=== PATIENT | female | born 1995 | race Caucasian/White ===

== ENCOUNTER 2016-11-16 11:46 | Emergency (ER) | payer OTHER ==
[2016-11-16 12:11] VITALS: BP 137/79
--- NOTE | 2016-11-16 13:06 | UC ---
Throat Pain/Nasal Jagdish HPI - HPI Summary HPI Summary: FOUR DAYS OF SORE THROAT SINUS CONGESTION AND PRESSURE - History of Current Complaint Chief Complaint: UCRespiratory Stated Complaint: SINUS ISSUE SORE THROAT Time Seen by Provider: 11/16/16 12:39 Hx Obtained From: Patient Hx Last Menstrual Period: 09/23/16- STATES SHE IS VERY IRREGULAR Onset/Duration: Gradual Onset, Lasting Days, Still Present Severity: Mild Cough: Nonproductive Associated Signs & Symptoms: Positive: Sinus Discomfort, Nasal Discharge - Epiglottits Risk Factors Epiglottis Risk Factors: Negative - Allergies/Home Medications Allergies/Adverse Reactions: Allergies Allergy/AdvReac Type Severity Reaction Status Date / Time Penicillins Allergy Rash Verified 09/11/14 14:35 PMH/Surg Hx/FS Hx/Imm Hx Previously Healthy: Yes Endocrine History Of: Denies: Diabetes, Thyroid Disease Cardiovascular History Of: Denies: Cardiac Disorders, Hypertension, Pacemaker/ICD Respiratory History Of: Denies: COPD, Asthma GI/ History Of: Denies: Ulcer - Surgical History Surgical History: None - Family History Known Family History: Positive: Hypertension - Social History Occupation: Employed Full-time Lives: With Family Alcohol Use: None Substance Use Type: None Smoking Status (MU): Never Smoked Tobacco - Immunization History Most Recent Influenza Vaccination: 07/10 Review of Systems Constitutional: Negative Skin: Negative Eyes: Negative ENT: Sore Throat, Ear Ache, Nasal Discharge Respiratory: Negative Cardiovascular: Negative Gastrointestinal: Negative Genitourinary: Negative Motor: Negative Neurovascular: Negative Musculoskeletal: Negative Neurological: Negative Psychological: Negative All Other Systems Reviewed And Are Negative: Yes Physical Exam Triage Information Reviewed: Yes Appearance: Well-Appearing, No Pain Distress, Well-Nourished Vital Signs: Initial Vital Signs Temp 98.4 F 11/16/16 12:05 Pulse 89 11/16/16 12:05 Resp 16 11/16/16 12:05 BP 137/79 11/16/16 12:05 Pulse Ox 100 11/16/16 12:05 Vital Signs Reviewed: Yes Eye Exam: Normal ENT: Positive: Hearing grossly normal, TMs normal, TM bulging, TM dull Dental Exam: Normal Neck exam: Normal Respiratory Exam: Normal Respiratory: Positive: Chest non-tender, Lungs clear, Normal breath sounds, No respiratory distress, No accessory muscle use Cardiovascular Exam: Normal Cardiovascular: Positive: RRR, No Murmur, Pulses Normal Abdominal Exam: Normal Abdomen Description: Positive: Nontender, No Organomegaly Musculoskeletal Exam: Normal Neurological Exam: Normal Psychological Exam: Normal Skin Exam: Normal Throat Pain/Nasal Course/Dx - Differential Dx/Diagnosis Differential Diagnosis/HQI/PQRI: Otitis Media, Sinusitis, Tonsillitis, URI Provider Diagnoses: SINUSITIS Discharge - Discharge Plan Condition: Stable Disposition: HOME Prescriptions: Azithromycin TAB* [Zithromax TAB (Z-MUNA) 250 mg #6 tabs] 250 mg PO DAILY #6 tab Patient Education Materials: Sinusitis (ED) Forms: *Work Release Referrals: Maggy Denney MD [Primary Care Provider] -
== END 2016-11-16 13:02 | disposition home or self-care (01) ==
LOC: UCEAST 11:46
DX: J32.9 Chronic sinusitis, unspecified (principal); Z88.0 Allergy status to penicillin
CPT/HCPCS: 36415; 86703; 99212; G0463

== ENCOUNTER 2017-03-10 13:55 | Emergency (ER) | payer OTHER ==
[2017-03-10 14:04] VITALS: BP 154/94
--- NOTE | 2017-04-09 22:25 | UC ---
Sarbjit Burgess Aidan, scribed for Amaya Robin DO on 03/10/17 at 1423 . Psychiatric Complaint HPI - HPI Summary HPI Summary: 21 y/o female presents to the Urgent Care with a complaint of an acute, constant , moderate, possibly infected, linear cut on the left shoulder that was self- induced 2 weeks ago. Pt used a cleaned razor to induce the cut. She is due for a tetanus shot. While at convenient care, she reopened the cut with her nails. She reports that cutting herself reduces her stress and that she has been cutting since she was 12 y/o. Lastly, she requests a MHE. Though she has had SI in the past, she denies any HI and does not claim to be suicidal currently. Besides mentioning getting diarrhea when her body becomes overheated, she denies any other symptoms. - History Of Current Complaint Chief Complaint: EDMentalHealth Stated Complaint: PERSONAL Time Seen by Provider: 03/10/17 14:05 Hx Obtained From: Patient Hx Last Menstrual Period: 02/06/17 ?: No Onset/Duration: Sudden Onset, Lasting Weeks, Still Present Timing: Constant Severity Initially: Moderate Severity Currently: Moderate Character: Depressed Aggravating Factor(s): Nothing - unknown; Pt has depression and has been cutting herself since she was 12 y/o. Alleviating Factor(s): Nothing - Pt mentions counseling, however, she did not state that the counseling has helped. Associated Signs And Symptoms: Negative - Pt gets diarrhea when her body becomes overheated Related History: Positive For: Prior Psychiatric Issues - depression Has Suicidal: Thoughts - Risk Factor(s) Completed Suicide Risk Factors: White Bel[place]an - Allergies/Home Medications Allergies/Adverse Reactions: Allergies Allergy/AdvReac Type Severity Reaction Status Date / Time Penicillins Allergy Rash Verified 03/11/17 13:33 PMH/Surg Hx/FS Hx/Imm Hx - Additional Past Medical History Additional PMH: Hx of mono Psychological History: Depression - Pt has been cutting herself since she was 12 years old - Surgical History Surgical History: None - Family History Known Family History: Positive: Hypertension, Other - depression, skin CA - Social History Occupation: Employed Full-time Lives: Alone Alcohol Use: Rare Substance Use Type: None Smoking Status (MU): Never Smoked Tobacco - Immunization History Most Recent Influenza Vaccination: 07/10 Review of Systems Constitutional: Negative Skin: Other - linear, self-induced lacerations to shoulders bilaterally, active bleeding at a laceration to the left shoulder Eyes: Negative ENT: Negative Respiratory: Negative Cardiovascular: Negative Gastrointestinal: Negative Genitourinary: Negative Motor: Negative Neurovascular: Negative Musculoskeletal: Negative Neurological: Negative Psychological: Negative All Other Systems Reviewed And Are Negative: Yes Physical Exam Triage Information Reviewed: Yes Appearance: Well-Appearing, No Pain Distress, Well-Nourished Vital Signs: Initial Vital Signs Temp 98.9 F 03/10/17 13:57 Pulse 107 03/10/17 13:57 Resp 18 03/10/17 13:57 BP 154/94 03/10/17 13:57 Pulse Ox 100 03/10/17 13:57 Vital Signs Reviewed: Yes Eyes: Positive: Conjunctiva Clear. Negative: Discharge ENT: Positive: Hearing grossly normal. Negative: Muffled/hoarse voice Neck exam: Normal Neck: Positive: Supple Respiratory: Positive: Lungs clear, Normal breath sounds, No respiratory distress, No accessory muscle use Cardiovascular: Positive: RRR, No Murmur Musculoskeletal Exam: Normal Neurological: Positive: Alert, Muscle Tone Normal Psychological Exam: Other - Anxious, at times, tearful but consolable Skin Exam: Other - warm, dry, normal color, 6cm laceration over the anterior aspect of the left shoulder Psych Complaint Course/Dx - Course Course Of Treatment: 21 y/o female presents for a MHE. She has self-induced lacerations to the left shoulder. High blood pressure is noted. She denies any Hx of smoking. She was encouraged to exercise regularly and to follow up with psychiatry. She will be transfered to the ED for MHE. - Differential Dx/Diagnosis Differential Diagnosis/HQI/PQRI: Suicidal Ideation, Other - self mutilation Provider Diagnoses: self mutilation, depression suicidal ideation Discharge - Discharge Plan Condition: Stable Disposition: [facility] Discharge Disposition Comment: The patient will be transfered to the ED for a MHE. Referrals: Maggy Denney MD [Primary Care Provider] - The documentation as recorded by the Sarbjit frank Aidan accurately reflects the service I personally performed and the decisions made by me, Amaya Robin DO.
== END 2017-03-10 16:25 | disposition short-term general hospital (02) ==
LOC: UCEAST 13:55
DX: S41.012A Laceration without foreign body of left shoulder, initial encounter (principal); X78.8XXA Intentional self-harm by other sharp object, initial encounter; Y93.9 Activity, unspecified; Y92.9 Unspecified place or not applicable; F32.9 Major depressive disorder, single episode, unspecified; R45.851 Suicidal ideations; R19.7 Diarrhea, unspecified; R03.0 Elevated blood-pressure reading, without diagnosis of hypertension
CPT/HCPCS: 99213; G0463

== ENCOUNTER 2017-03-10 15:42 | Inpatient (IN) | payer OTHER ==
[2017-03-10 16:33] LABS: Hematocrit 44 % (35-47); Hemoglobin 14.9 g/dl (12.0-16.0); Mean Corpuscular HGB Conc 34 g/dl (31-36); Mean Corpuscular Hemoglobin 30 pg (27-31); Mean Corpuscular Volume 88 fL (80-97); Mean Platelet Volume 7 um3 (7.4-10.4); Red Blood Count 5.02 10^6/ul (4.0-5.4); Red Cell Distribution Width 12 % (10.5-15); White Blood Count 11.6 10^3/ul (3.5-10.8)
[2017-03-10 16:40] LABS: Urine Bilirubin Negative (Negative); Urine Glucose Negative (Negative); Urine Nitrite Negative (Negative)
[2017-03-10 16:44] LABS: Benzodiazepine Urine Screen None Detected (None Detect)
[2017-03-10 16:58] LABS: ALT 15 U/L (7-52); AST 15 U/L (13-39); Albumin 4.8 g/dL (3.2-5.2); Alkaline Phosphatase 82 U/L (34-104); Anion Gap 8 mmol/L (2-11); BUN/Creatinine Ratio 16.4 (8-20); Blood Urea Nitrogen 12 mg/dL (6-24); CO2 Carbon Dioxide 22 mmol/L (22-32); Chloride 105 mmol/L (101-111); EGFR African American 129.4 (>60); EGFR Non-African American 100.6 (>60); Globulin 3.3 g/dL (2-4); Glucose 110 mg/dL (70-100); Sodium 135 mmol/L (133-145); Total Protein 8.1 g/dL (6.4-8.9)
[2017-03-10 17:12] LABS: Acetaminophen < 15 mcg/mL; Alcohol < 10 mg/dL (<10); Salicylate < 2.50 mg/dL (<30)
[2017-03-10 17:15] LABS: TSH (Thyroid Stimulating Horm) 1.31 mcIU/mL (0.34-5.60)
[2017-03-10] MEDS ORDERED: Acetaminophen TAB* 325 MG PO ONE (17:32)
--- NOTE | 2017-03-10 22:12 | ED ---
Coral Burgess Alfonso, scribed for Peterson Mace MD on 03/10/17 at 1548 . Psychiatric Complaint - HPI Summary HPI Summary: This patient is a 21 year old female BIBA with police to [facility] for cutting herself earlier today. She states "I cut myself on my left shoulder with a razor " in the urgent care bathroom, and has cut herself at the same site in the past. The triage note stats she wrote a letter "asking for help" last night. Sx aggravated and alleviated by nothing. - History Of Current Complaint Chief Complaint: EDMentalHealth Hx Obtained From: Patient Hx Last Menstrual Period: 02/06/17 Onset/Duration: Sudden Onset, Lasting Hours - Earlier today, Still Present Timing: Constant Severity Initially: Moderate Severity Currently: Moderate Aggravating Factor(s): Nothing Alleviating Factor(s): Nothing Has Suicidal: Reports: Has Prior Attempt(s) - Cut herself with a razor on her left shoulder today and in the past. - Allergies/Home Medications Allergies/Adverse Reactions: Allergies Allergy/AdvReac Type Severity Reaction Status Date / Time Penicillins Allergy Rash Verified 09/11/14 14:35 Home Medications: Home Medications Sertraline* [Zoloft*] 150 mg PO DAILY 03/10/17 [History Confirmed 03/10/17] busPIRone TAB* [Buspar TAB*] 10 mg PO BID 03/10/17 [History Confirmed 03/10/17] PMH/Surg Hx/FS Hx/Imm Hx Endocrine/Hematology History: Denies: Hx Diabetes, Hx Thyroid Disease Cardiovascular History: Denies: Hx Hypertension, Hx Pacemaker/ICD Respiratory History: Denies: Hx Asthma, Hx Chronic Obstructive Pulmonary Disease (COPD) GI History: Denies: Hx Ulcer Musculoskeletal History: Reports: Other Musculoskeletal History - swimmer, sprain or fx couple yrs ago,[facility] imaging blurry Psychiatric History: Denies: Hx Panic Disorder Infectious Disease History: Reports: Hx Shingles Denies: Hx Clostridium Difficile, Hx Hepatitis, Hx Human Immunodeficiency Virus (HIV), Hx of Known/Suspected MRSA, Hx Tuberculosis, Hx Known/Suspected VRE , Hx Known/Suspected VRSA, History Other Infectious Disease - mono - Family History Known Family History: Positive: Hypertension Negative: Other - Bipolar disorder - Social History Alcohol Use: Rare Substance Use Type: Reports: None Smoking Status (MU): Never Smoked Tobacco Review of Systems Constitutional: Negative Eyes: Negative ENT: Negative Cardiovascular: Negative Respiratory: Negative Gastrointestinal: Negative Genitourinary: Negative Musculoskeletal: Negative Positive: Other - Cut by razor on left shoulder Neurological: Negative Psychological: Normal All Other Systems Reviewed And Are Negative: Yes Physical Exam Triage Information Reviewed: Yes Vital Signs On Initial Exam: Initial Vitals Temp Pulse Resp BP Pulse Ox 100.1 F 80 16 152/78 98 03/10/17 16:23 03/10/17 16:23 03/10/17 16:23 03/10/17 16:23 03/10/17 16:23 Vital Signs Reviewed: Yes Appearance: Positive: Well-Appearing, No Pain Distress Skin: Positive: Warm, Skin Color Reflects Adequate Perfusion, Dry, Other - 8cm laceration on left anterior shoulder. 3mm gap open. Head/Face: Positive: Normal Head/Face Inspection Eyes: Positive: Normal ENT: Positive: Normal ENT inspection Neck: Positive: Supple, Nontender Respiratory/Lung Sounds: Positive: Clear to Auscultation, Breath Sounds Present Cardiovascular: Positive: RRR Abdomen Description: Positive: Nontender, Soft Bowel Sounds: Positive: Present Musculoskeletal: Positive: Normal Neurological: Positive: Normal, Sensory/Motor Intact, Alert, Oriented to Person Place, Time, CN Intact II-III Psychiatric: Positive: Normal Procedures - Laceration/Wound Repair 1 Location: upper extremity - anterior left shoulder Description: Linear Anesthesia: Local, 2.0%, Lido Betadine Prep?: Yes Laceration/Wound Explored: clean Closure: Single Layer Suture Type: Nylon - 5.0 simple interrupted Number of Sutures: 7 Layer Closure?: No Sterile Dressing Applied?: No Diagnostics - Vital Signs Vital Signs Temp Pulse Resp BP Pulse Ox 03/10/17 17:22 99.3 F 106 16 144/98 97 03/10/17 16:23 100.1 F 80 16 152/78 98 - Laboratory Lab Results: Lab Results 03/10/17 03/10/17 03/10/17 Range/Units 16:05 16:05 16:14 WBC 11.6 H (3.5-10.8) 10^3/ul RBC 5.02 (4.0-5.4) 10^6/ul Hgb 14.9 (12.0-16.0) g/dl Hct 44 (35-47) % MCV 88 (80-97) fL MCH 30 (27-31) pg MCHC 34 (31-36) g/dl RDW 12 (10.5-15) % Plt Count 340 (150-450) 10^3/ul MPV 7 L (7.4-10.4) um3 Neut % (Auto) 68.3 (38-83) % Lymph % (Auto) 22.7 L (25-47) % [place] % (Auto) 7.2 (1-9) % Eos % (Auto) 1.0 (0-6) % Baso % (Auto) 0.8 (0-2) % Absolute Neuts (auto) 7.9 H (1.5-7.7) 10^3/ul Absolute Lymphs (auto) 2.6 (1.0-4.8) 10^3/ul Absolute Monos (auto) 0.8 (0-0.8) 10^3/ul Absolute Eos (auto) 0.1 (0-0.6) 10^3/ul Absolute Basos (auto) 0.1 (0-0.2) 10^3/ul Absolute Nucleated RBC 0 10^3/ul Nucleated RBC % 0 Sodium (133-145) mmol/L Potassium (3.5-5.0) mmol/L Chloride (101-111) mmol/L Carbon Dioxide (22-32) mmol/L Anion Gap (2-11) mmol/L BUN (6-24) mg/dL Creatinine (0.51-0.95) mg/dL Est GFR ( Amer) (>60) Est GFR (Non-Af Amer) (>60) BUN/Creatinine Ratio (8-20) Glucose (70-100) mg/dL Calcium (8.6-10.3) mg/dL Total Bilirubin (0.2-1.0) mg/dL AST (13-39) U/L ALT (7-52) U/L Alkaline Phosphatase (34-104) U/L Total Protein (6.4-8.9) g/dL Albumin (3.2-5.2) g/dL Globulin (2-4) g/dL Albumin/Globulin Ratio (1-3) TSH (0.34-5.60) mcIU/mL Beta HCG, Quant mIU/mL Urine Color Yellow Urine Appearance Clear Urine pH 5.0 (5-9) Ur Specific [place] 1.023 (1.010-1.030) Urine Protein Negative (Negative) Urine Ketones Negative (Negative) Urine Blood Negative (Negative) Urine Nitrate Negative (Negative) Urine Bilirubin Negative (Negative) Urine Urobilinogen Negative (Negative) Ur Leukocyte Esterase Negative (Negative) Urine Glucose Negative (Negative) Salicylates (<30) mg/dL Urine Opiates Screen None detected (None Detect) Acetaminophen mcg/mL Ur Barbiturates Screen None detected (None Detect) Ur Phencyclidine Scrn None detected (None Detect) Ur Amphetamines Screen None detected (None Detect) U Benzodiazepines Scrn None detected (None Detect) Urine Cocaine Screen None detected (None Detect) U Cannabinoids Screen None detected (None Detect) Serum Alcohol (<10) mg/dL 03/10/17 Range/Units 16:14 WBC (3.5-10.8) 10^3/ul RBC (4.0-5.4) 10^6/ul Hgb (12.0-16.0) g/dl Hct (35-47) % MCV (80-97) fL MCH (27-31) pg MCHC (31-36) g/dl RDW (10.5-15) % Plt Count (150-450) 10^3/ul MPV (7.4-10.4) um3 Neut % (Auto) (38-83) % Lymph % (Auto) (25-47) % [place] % (Auto) (1-9) % Eos % (Auto) (0-6) % Baso % (Auto) (0-2) % Absolute Neuts (auto) (1.5-7.7) 10^3/ul Absolute Lymphs (auto) (1.0-4.8) 10^3/ul Absolute Monos (auto) (0-0.8) 10^3/ul Absolute Eos (auto) (0-0.6) 10^3/ul Absolute Basos (auto) (0-0.2) 10^3/ul Absolute Nucleated RBC 10^3/ul Nucleated RBC % Sodium 135 (133-145) mmol/L Potassium 4.0 (3.5-5.0) mmol/L Chloride 105 (101-111) mmol/L Carbon Dioxide 22 (22-32) mmol/L Anion Gap 8 (2-11) mmol/L BUN 12 (6-24) mg/dL Creatinine 0.73 (0.51-0.95) mg/dL Est GFR ( Amer) 129.4 (>60) Est GFR (Non-Af Amer) 100.6 (>60) BUN/Creatinine Ratio 16.4 (8-20) Glucose 110 H (70-100) mg/dL Calcium 10.0 (8.6-10.3) mg/dL Total Bilirubin 0.40 (0.2-1.0) mg/dL AST 15 (13-39) U/L ALT 15 (7-52) U/L Alkaline Phosphatase 82 (34-104) U/L Total Protein 8.1 (6.4-8.9) g/dL Albumin 4.8 (3.2-5.2) g/dL Globulin 3.3 (2-4) g/dL Albumin/Globulin Ratio 1.5 (1-3) TSH 1.31 (0.34-5.60) mcIU/mL Beta HCG, Quant 1.46 mIU/mL Urine Color Urine Appearance Urine pH (5-9) Ur Specific [place] (1.010-1.030) Urine Protein (Negative) Urine Ketones (Negative) Urine Blood (Negative) Urine Nitrate (Negative) Urine Bilirubin (Negative) Urine Urobilinogen (Negative) Ur Leukocyte Esterase (Negative) Urine Glucose (Negative) Salicylates < 2.50 (<30) mg/dL Urine Opiates Screen (None Detect) Acetaminophen < 15 mcg/mL Ur Barbiturates Screen (None Detect) Ur Phencyclidine Scrn (None Detect) Ur Amphetamines Screen (None Detect) U Benzodiazepines Scrn (None Detect) Urine Cocaine Screen (None Detect) U Cannabinoids Screen (None Detect) Serum Alcohol < 10 (<10) mg/dL Result Diagrams: 03/10/17 16:14 03/10/17 16:14 Lab Statement: Any lab studies that have been ordered have been reviewed, and results considered in the medical decision making process. Re-Evaluation - Re-Evaluation First Eval Re-Evaluation Time: 19:48 Change: Improved Comment: Discussed admission with patient. Course/Dx - Course Course Of Treatment: Ms. Crispell cut herself over at [facility] today for unknown reasons and was sent over. She is medically clear and undergoing MHE. - Differential Dx/Clinical Impression Provider Diagnosis: Mood disorder Discharge - Discharge Plan Condition: Stable Disposition: ADMITTED TO [facility] Referrals: Maggy Denney MD [Primary Care Provider] - The documentation as recorded by the Coral frank Alfonso accurately reflects the service I personally performed and the decisions made by me, Peterson Mace MD.
[2017-03-10] MEDS ORDERED: Al Hydrox/Mg Hydrox/Simet LIQ* 30 ML UDC PO PRN (22:36)
[2017-03-10] MEDS ORDERED: Loperamide CAP* 2 MG PO PRN (22:40)
[2017-03-11] MEDS ORDERED: Sertraline* 100 MG TAB PO SCH (01:00)
[2017-03-11] MEDS ORDERED: busPIRone TAB* 10 MG ONE (01:03)
[2017-03-11] MEDS: busPIRone TAB* 10 MG PO SCH ×3 (01:06→21:24)
[2017-03-11] MEDS: Acetaminophen TAB* 325 MG PO PRN (02:00)
[2017-03-11] MEDS: Vitamin THERAPEUTIC TAB PO SCH (09:10)
[2017-03-11] MEDS: Sertraline* 100 MG TAB PO SCH (21:24)
[2017-03-11] MEDS: Bacitracin OINTMENT* 1 TUBE TOPICAL SCH (21:25)
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
[2017-03-12] MEDS: Vitamin THERAPEUTIC TAB PO SCH (08:26)
[2017-03-12] MEDS: busPIRone TAB* 10 MG PO SCH ×2 (08:26→20:20)
[2017-03-12] MEDS: Bacitracin OINTMENT* 1 TUBE TOPICAL SCH ×2 (08:27→10:04)
[2017-03-12] MEDS: Sertraline* 100 MG TAB PO SCH (20:20)
[2017-03-13] MEDS: Bacitracin OINTMENT* 1 TUBE TOPICAL SCH ×3 (07:29→23:30)
[2017-03-13] MEDS: Vitamin THERAPEUTIC TAB PO SCH (08:38)
[2017-03-13] MEDS: busPIRone TAB* 10 MG PO SCH ×2 (08:38→21:29)
--- NOTE | 2017-03-13 13:04 | PN ---
[facility]: Group Therapy Note - Service Type Service Type: [id number] Group Psychotherapy - Cognitive Behavioral Group Therapy ( CBT):Patient was attentive and participatory in CBT programming this morning, and remained in good behavioral control. Patient expressed positive insights regarding relevant treatment interventions and goals.
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
[2017-03-13] MEDS: Sertraline* 100 MG TAB PO SCH (21:29)
[2017-03-14] MEDS: LORazepam TAB(*) 1 MG PO PRN ×2 (02:12→11:30)
[2017-03-14] MEDS: busPIRone TAB* 10 MG PO SCH ×2 (08:47→21:02)
[2017-03-14] MEDS: Vitamin THERAPEUTIC TAB PO SCH (08:47)
--- NOTE | 2017-03-14 11:45 | PN ---
[facility]: Group Therapy Note - Service Type Service Type: [id number] Group Psychotherapy - Cognitive Behavioral Group Therapy ( CBT):Patient was attentive and participatory in CBT programming this morning, and remained in good behavioral control. Patient expressed positive insights regarding relevant treatment interventions and goals.
[2017-03-14] MEDS: Bacitracin OINTMENT* 1 TUBE TOPICAL SCH ×2 (12:00→21:03)
[2017-03-14] MEDS: Loperamide CAP* 2 MG PO PRN (13:00)
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
[2017-03-14] MEDS: Sertraline* 100 MG TAB PO SCH (21:02)
[2017-03-15] MEDS: diPHENhydraMINE PO* 50 MG PO PRN ×2 (04:02→22:53)
[2017-03-15] MEDS: Vitamin THERAPEUTIC TAB PO SCH (09:05)
[2017-03-15] MEDS: Bacitracin OINTMENT* 1 TUBE TOPICAL SCH ×2 (09:06→21:00)
[2017-03-15] MEDS: busPIRone TAB* 10 MG PO SCH ×2 (09:06→20:58)
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
[2017-03-15] MEDS: Sertraline* 100 MG TAB PO SCH (20:58)
[2017-03-15] MEDS: LORazepam TAB(*) 1 MG PO PRN (22:52)
[2017-03-16] MEDS: Vitamin THERAPEUTIC TAB PO SCH (09:58)
[2017-03-16] MEDS: busPIRone TAB* 10 MG PO SCH ×2 (09:58→20:54)
[2017-03-16] MEDS: Bacitracin OINTMENT* 1 TUBE TOPICAL SCH ×3 (09:59→20:54)
[2017-03-16] MEDS: Acetaminophen TAB* 325 MG PO PRN (10:22)
[2017-03-16] MEDS ORDERED: Ibuprofen TAB* 600 MG PO PRN (11:23)
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
--- NOTE | 2017-03-16 14:26 | RAD ---
INDICATION: Right hand injury. TECHNIQUE: 2 views of the right hand were obtained. FINDINGS: There is soft tissue swelling present dorsal to the metacarpal bones. The bones are in normal alignment. No fracture is seen. Joint spaces appear maintained. IMPRESSION: SOFT TISSUE SWELLING, NO FRACTURE IS SEEN.
[2017-03-16] MEDS: LORazepam TAB(*) 1 MG PO PRN (16:58)
[2017-03-16] MEDS: Sertraline* 100 MG TAB PO SCH (20:55)
[2017-03-16] MEDS: diPHENhydraMINE PO* 50 MG PO PRN (22:26)
[2017-03-17] MEDS: busPIRone TAB* 10 MG PO SCH ×2 (09:14→20:46)
[2017-03-17] MEDS: Vitamin THERAPEUTIC TAB PO SCH (09:14)
[2017-03-17] MEDS: Bacitracin OINTMENT* 1 TUBE TOPICAL SCH ×2 (09:52→22:09)
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
[2017-03-17] MEDS: Sertraline* 100 MG TAB PO SCH (20:46)
[2017-03-18] MEDS: busPIRone TAB* 10 MG PO SCH ×2 (09:13→21:32)
[2017-03-18] MEDS: Vitamin THERAPEUTIC TAB PO SCH (09:14)
[2017-03-18] MEDS: Bacitracin OINTMENT* 1 TUBE TOPICAL SCH (10:51)
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
[2017-03-18] MEDS: Sertraline* 100 MG TAB PO SCH (21:32)
[2017-03-19] MEDS: Bacitracin OINTMENT* 1 TUBE TOPICAL SCH ×2 (00:05→12:04)
[2017-03-19] MEDS: Vitamin THERAPEUTIC TAB PO SCH (09:15)
[2017-03-19] MEDS: busPIRone TAB* 10 MG PO SCH ×2 (09:51→20:53)
[2017-03-19] MEDS: Sertraline* 100 MG TAB PO SCH (20:53)
[2017-03-20] MEDS: Bacitracin OINTMENT* 1 TUBE TOPICAL SCH ×3 (01:00→22:01)
[2017-03-20] MEDS: LORazepam TAB(*) 1 MG PO PRN (02:15)
[2017-03-20] MEDS: diPHENhydraMINE PO* 50 MG PO PRN (02:16)
[2017-03-20] MEDS: Vitamin THERAPEUTIC TAB PO SCH (09:43)
[2017-03-20] MEDS: busPIRone TAB* 10 MG PO SCH ×2 (09:43→21:59)
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
--- NOTE | 2017-03-20 14:01 | PN ---
[facility]: Group Therapy Note - Service Type Service Type: 15058 Group Psychotherapy - Cognitive Behavioral Group Therapy ( CBT):Patient was attentive and participatory in CBT programming this morning, and remained in good behavioral control. Patient expressed positive insights regarding relevant treatment interventions and goals.
[2017-03-20] MEDS: Sertraline* 100 MG TAB PO SCH (21:59)
[2017-03-20] MEDS: Loperamide CAP* 2 MG PO PRN (22:00)
[2017-03-21 08:34] VITALS: BP 133/68
[2017-03-21] MEDS: busPIRone TAB* 10 MG PO SCH (09:40)
[2017-03-21] MEDS: Vitamin THERAPEUTIC TAB PO SCH (09:40)
[2017-03-21] MEDS: Bacitracin OINTMENT* 1 TUBE TOPICAL SCH (09:42)
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
== END 2017-03-21 14:20 | disposition home or self-care (01) | DRG 754 ==
LOC: ED 15:42 → BSU 22:25
PROVIDERS: ADMIT Psychiatry & Neurology Psychiatry; ATTEND Psychiatry & Neurology Psychiatry
DX: F32.9 Major depressive disorder, single episode, unspecified (principal); F50.81 Binge eating disorder; R45.851 Suicidal ideations; F60.3 Borderline personality disorder; E66.9 Obesity, unspecified; Z68.36 Body mass index [BMI] 36.0-36.9, adult; Z79.899 Other long term (current) drug therapy; Z88.0 Allergy status to penicillin; Z81.8 Family history of other mental and behavioral disorders
CPT/HCPCS: 36415; 80053; 80307; 80320; 80329; 81003; 84443; 84702; 85025; 90847; 90853; 99222; 99231; 99232; 99238; A9270-GY; G0480

== ENCOUNTER 2017-10-17 15:00 | Inpatient (IN) | payer BC, MEDICAID ==
[2017-10-17 16:11] LABS: ABS Basophils 0.1 10^3/ul (0-0.2); ABS Eosinophils 0.3 10^3/ul (0-0.6); ABS Lymphocytes 2.5 10^3/ul (1.0-4.8); ABS Monocytes 0.8 10^3/ul (0-0.8); ABS Neutrophils 7.8 10^3/ul (1.5-7.7); ABS Nucleated RBC 0 10^3/ul; Eosinophil % 2.5 % (0-6); Hematocrit 42 % (35-47); Hemoglobin 14.7 g/dl (12.0-16.0); Lymphocyte % 22.2 % (25-47); Mean Corpuscular HGB Conc 35 g/dl (31-36); Mean Corpuscular Hemoglobin 31 pg (27-31); Mean Corpuscular Volume 88 fL (80-97); Mean Platelet Volume 7 um3 (7.4-10.4); Nucleated Red Blood Cells % 0; Platelet Count 327 10^3/ul (150-450); Red Blood Count 4.79 10^6/ul (4.0-5.4); Red Cell Distribution Width 12 % (10.5-15); White Blood Count 11.4 10^3/ul (3.5-10.8)
[2017-10-17 16:22] LABS: EGFR Non-African American 99.7 (>60)
[2017-10-17] MEDS ORDERED: Acetaminophen TAB* 325 MG PO ONE (17:43)
--- NOTE | 2017-10-17 18:08 | ED ---
Psychiatric Complaint - HPI Summary HPI Summary: Pt presents today with depression and SI. Pt states she has been having intermittent thoughts of SI over the last several weeks. Pt states today she could no longer control her thoughts and felt as if she wanted to act on her SI. Pt states she has thoughts of SI in the past and been hospitalized recently for similar symptoms. - History Of Current Complaint Chief Complaint: EDMentalHealth Time Seen by Provider: 10/17/17 15:20 Hx Obtained From: Patient Hx Last Menstrual Period: 02/06/17 ?: No Onset/Duration: Gradual Onset Severity Initially: Mild Severity Currently: Severe Aggravating Factor(s): Recent Stress Associated Signs And Symptoms: Positive: Negative Related History: Positive For: Prior Psychiatric Issues - Depression, SI Has Suicidal: Reports: Thoughts, With A Plan, Has Prior Attempt(s) - Risk Factor(s) Completed Suicide Risk Factors: White Palestinian, Past Suicide Attempt - Allergies/Home Medications Allergies/Adverse Reactions: Allergies Allergy/AdvReac Type Severity Reaction Status Date / Time Penicillins Allergy Rash Verified 03/11/17 13:33 PMH/Surg Hx/FS Hx/Imm Hx Endocrine/Hematology History: Denies: Hx Diabetes, Hx Thyroid Disease, Hx Unexplained Bleeding Cardiovascular History: Denies: Hx Hypertension, Hx Pacemaker/ICD, Hx Peripheral Vascular Disease, Hx Rheumatic Fever, Hx Syncope, Hx Valvular Heart Disease, Other Cardiovascular Problems/Disorders Respiratory History: Denies: Hx Asthma, Hx Chronic Obstructive Pulmonary Disease (COPD) GI History: Denies: Hx Ulcer Musculoskeletal History: Reports: Other Musculoskeletal History - swimmer, sprain or fx couple yrs ago,[facility] Sensory History: Denies: Hx Cataracts, Hx Contacts or Glasses, Hx Eye Injury, Hx Eye Prosthesis, Hx Glaucoma, Hx Legally Blind, Hx Macular Degeneration, Hx Vision Problem, Hx Deafness, Hx Hearing Aid, Hx Hearing Problem, Other Sensory Impairments Opthamlomology History: Denies: Hx Cataracts, Hx Contacts or Glasses, Hx Eye Injury, Hx Eye Prosthesis, Hx Glaucoma, Hx Legally Blind, Hx Macular Degeneration, Hx Vision Problem, Other Sensory Impairments Psychiatric History: Reports: Hx Eating Disorder - Dx about 1 year ago, Hx Inpatient Treatment, Other Psychiatric Issues/Disorders - Hx of self-injuring since age 12 years -old Denies: Hx Panic Disorder, Hx of Violent Episodes Against Others Infectious Disease History: No Infectious Disease History: Reports: Hx Shingles Denies: Hx Clostridium Difficile, Hx Hepatitis, Hx Human Immunodeficiency Virus (HIV), Hx of Known/Suspected MRSA, Hx Tuberculosis, Hx Known/Suspected VRE , Hx Known/Suspected VRSA, History Other Infectious Disease - mono, Traveled Outside the [place] in Last 30 Days - Family History Known Family History: Positive: Hypertension Negative: Other - Bipolar disorder - Social History Alcohol Use: Rare Alcohol Amount: socially Hx Substance Use: No Substance Use Type: Reports: None Smoking Status (MU): Never Smoked Tobacco Have You Smoked in the Last Year: No Review of Systems Constitutional: Negative Cardiovascular: Negative Respiratory: Negative Gastrointestinal: Negative Positive: no symptoms reported Negative: Decreased ROM Positive: Other - abrasion hand All Other Systems Reviewed And Are Negative: Yes Physical Exam Triage Information Reviewed: Yes Vital Signs On Initial Exam: Initial Vitals Temp Pulse Resp BP Pulse Ox 37.5 C 116 20 169/103 96 10/17/17 15:30 10/17/17 15:30 10/17/17 15:30 10/17/17 15:30 10/17/17 15:30 Vital Signs Reviewed: Yes Appearance: Positive: Well-Appearing, No Pain Distress Skin: Positive: Warm, Skin Color Reflects Adequate Perfusion Head/Face: Positive: Normal Head/Face Inspection Eyes: Positive: Normal ENT: Positive: Normal ENT inspection Neck: Positive: No Lymphadenopathy Respiratory/Lung Sounds: Positive: Clear to Auscultation, Breath Sounds Present Cardiovascular: Positive: Normal, RRR, Pulses are Symmetrical in both Upper and Lower Extremities Abdomen Description: Positive: Nontender, Soft Musculoskeletal: Positive: Normal. Negative: Other - left dorsum hand - superficial abrasion; no bleeding; nontender; FROM Neurological: Positive: Normal, Alert, Oriented to Person Place, Time Psychiatric: Positive: Depressed, Other - SI Diagnostics - Vital Signs Vital Signs Temp Pulse Resp BP Pulse Ox 10/17/17 15:30 37.5 C 116 20 169/103 96 - Laboratory Lab Results: Lab Results 10/17/17 10/17/17 Range/Units 15:58 15:58 WBC 11.4 H (3.5-10.8) 10^3/ul RBC 4.79 (4.0-5.4) 10^6/ul Hgb 14.7 (12.0-16.0) g/dl Hct 42 (35-47) % MCV 88 (80-97) fL MCH 31 (27-31) pg MCHC 35 (31-36) g/dl RDW 12 (10.5-15) % Plt Count 327 (150-450) 10^3/ul MPV 7 L (7.4-10.4) um3 Neut % (Auto) 67.8 (38-83) % Lymph % (Auto) 22.2 L (25-47) % [place] % (Auto) 6.7 (1-9) % Eos % (Auto) 2.5 (0-6) % Baso % (Auto) 0.8 (0-2) % Absolute Neuts (auto) 7.8 H (1.5-7.7) 10^3/ul Absolute Lymphs (auto) 2.5 (1.0-4.8) 10^3/ul Absolute Monos (auto) 0.8 (0-0.8) 10^3/ul Absolute Eos (auto) 0.3 (0-0.6) 10^3/ul Absolute Basos (auto) 0.1 (0-0.2) 10^3/ul Absolute Nucleated RBC 0 10^3/ul Nucleated RBC % 0 Sodium 134 (133-145) mmol/L Potassium 3.7 (3.5-5.0) mmol/L Chloride 103 (101-111) mmol/L Carbon Dioxide 23 (22-32) mmol/L Anion Gap 8 (2-11) mmol/L BUN 9 (6-24) mg/dL Creatinine 0.73 (0.51-0.95) mg/dL Est GFR ( Amer) 128.2 (>60) Est GFR (Non-Af Amer) 99.7 (>60) BUN/Creatinine Ratio 12.3 (8-20) Glucose 143 H (70-100) mg/dL Calcium 9.8 (8.6-10.3) mg/dL Total Bilirubin 0.40 (0.2-1.0) mg/dL AST 19 (13-39) U/L ALT 32 (7-52) U/L Alkaline Phosphatase 66 (34-104) U/L Total Protein 7.5 (6.4-8.9) g/dL Albumin 4.4 (3.2-5.2) g/dL Globulin 3.1 (2-4) g/dL Albumin/Globulin Ratio 1.4 (1-3) TSH 2.31 (0.34-5.60) mcIU/mL Salicylates < 2.50 (<30) mg/dL Acetaminophen < 15 mcg/mL Serum Alcohol < 10 (<10) mg/dL Result Diagrams: 10/17/17 15:58 10/17/17 15:58 Lab Statement: Any lab studies that have been ordered have been reviewed, and results considered in the medical decision making process. Re-Evaluation - Re-Evaluation First Eval Re-Evaluation Time: 18:08 Comment: Pt resting comfortably in bed. pt clear for Psych evaluation Course/Dx - Course Course Of Treatment: Pt seen and examined by Behavioral/Mental health. Plan for admission for further psych evaluation. - Differential Dx/Clinical Impression Differential Diagnosis/HQI/PQRI: Positive: Acute Psychosis, Anxiety, Depression , Suicide Attempt, Suicidal Ideation, Suicidal Gesture Provider Diagnosis: Suicidal ideation, Depression, Abrasion hand Discharge - Discharge Plan Condition: Stable Disposition: ADMITTED TO [facility]
[2017-10-17] MEDS ORDERED: Ketorolac INJ* 30 MG/ML 1 ML VIAL IM ONE (19:48)
[2017-10-17] MEDS ORDERED: hydrOXYzine HCL TAB* 25 MG PO ONE (19:48)
[2017-10-17] MEDS: Acetaminophen TAB* 325 MG PO PRN (22:52)
[2017-10-17] MEDS: FLUoxetine CAP* 20 MG PO SCH (22:52)
[2017-10-18] MEDS: Vitamin THERAPEUTIC TAB PO SCH (09:29)
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
--- NOTE | 2017-10-18 11:37 | PN ---
[facility]: Group Therapy Note - Service Type Service Type: [id number] Group Psychotherapy - Cognitive Behavioral Group Therapy ( CBT):Patient was attentive and participatory in CBT programming this morning, and remained in good behavioral control. Patient expressed positive insights regarding relevant treatment interventions and goals.
[2017-10-18] MEDS ORDERED: clonazePAM TAB(*) 0.5 MG ONE (16:54)
[2017-10-18] MEDS: clonazePAM TAB(*) 0.5 MG PO SCH (16:55)
[2017-10-18] MEDS ORDERED: cloNIDine TAB* 0.1 MG ONE (17:48)
[2017-10-18] MEDS ORDERED: cloNIDine TAB* 0.1 MG PO ONE (17:50)
[2017-10-18] MEDS: traZODone TAB* 50 MG TAB PO SCH (20:50)
[2017-10-18] MEDS: FLUoxetine CAP* 20 MG PO SCH (20:50)
[2017-10-18] MEDS: Naltrexone TAB* 50 MG TAB PO SCH (20:50)
[2017-10-18] MEDS: CMCS: Lithium Carbonate ER (NF) 300 MG TAB.ER PO SCH (20:51)
[2017-10-18] MEDS ORDERED: LITHIUM CARBONATE 1200 MG PO SCH (21:00)
[2017-10-18] MEDS ORDERED: Lithium Carbonate ER* 450 MG TAB.ER PO SCH (21:00)
[2017-10-18] MEDS ORDERED: MELATONIN 10 MG PO SCH (21:00)
[2017-10-19] MEDS: Vitamin THERAPEUTIC TAB PO SCH (08:22)
[2017-10-19] MEDS: CMCS:Atomoxetine (NF) 40 MG CAP PO SCH (08:22)
[2017-10-19] MEDS: clonazePAM TAB(*) 0.5 MG PO SCH ×2 (08:22→17:29)
[2017-10-19] MEDS ORDERED: Influenza VAC *QUAD* 2017-18* 0.5 ML SYRINGE IM ONE (09:00)
--- NOTE | 2017-10-19 09:49 | PN ---
Subjective - Subjective Subjective: Psychiatric Attending Progress Note Patient felt anxious and reported symptoms of impending panic attack yesterday about dinner time. Patient was mildly tachycardic and had mild hypertension. I ordered clonidine 0.1 mg and Klonopin 0.25 mg stat which had beneficial effect. complained of diarrhea one yesterday and again this morning, as well as sore throat. slept 10 hours last night. patient feels like she may be getting viral infection. Vitals Stable today: Vital Signs: Temp Pulse Resp BP Pulse Ox 98.7 F 83 16 114/66 100 10/19/17 07:20 10/19/17 07:20 10/19/17 10:39 10/19/17 07:20 10/19/17 07:20 MSE: well related. good eye contact normal psychomotor behavior dressed in scrubs, fair hygiene speech normal rate, volume, fluency Mood: "sad" affect full range TP organized, Goal Directed TC: Denies AH,VH. denies urge to self injure today. denies SI spoke with mother about ADHD symptoms and mother was in agreement that she has had majority of inattentive symptoms since health sciences manager. Alert and fully oriented insight fairly good. judgment: tenuous as patient is highly impulsive and has history of self mutilation Impression: probable Bipolar type II currently depressed severe unspecified Anxiety Disorder ADHD inattentive type PTSD rule out Borderline Personality Disorder History of self Injurious Behavior Plan: Naltrexone 50 mg qhs Klonopin 0.25 mg BID Prozac 40 mg QD Start Wellbutrin XL 150 mg QAM Trazodone 50 mg QHS Doyline ER 1200 mg QHS Strattera 40 mg QAM
[2017-10-19] MEDS ORDERED: cloNIDine TAB* 0.1 MG PO ONE (16:46)
[2017-10-19] MEDS: FLUoxetine CAP* 20 MG PO SCH (20:05)
[2017-10-19] MEDS: traZODone TAB* 50 MG TAB PO SCH (20:05)
[2017-10-19] MEDS: CMCS: Lithium Carbonate ER (NF) 300 MG TAB.ER PO SCH (20:05)
[2017-10-19] MEDS: Naltrexone TAB* 50 MG TAB PO SCH (20:05)
[2017-10-20] MEDS: Al Hydrox/Mg Hydrox/Simet LIQ* 30 ML UDC PO PRN (02:45)
[2017-10-20] MEDS: clonazePAM TAB(*) 0.5 MG PO SCH ×2 (09:25→17:42)
[2017-10-20] MEDS: Vitamin THERAPEUTIC TAB PO SCH (09:25)
[2017-10-20] MEDS: CMCS:Atomoxetine (NF) 40 MG CAP PO SCH (09:25)
[2017-10-20] MEDS: BuPROPion XL* 150 MG TAB.XL PO SCH (09:25)
[2017-10-20] MEDS ORDERED: Loperamide CAP* 2 MG PO PRN (15:18)
--- NOTE | 2017-10-20 15:20 | PN ---
Subjective - Subjective Subjective: Psychiatric Attending Progress Note: patient has been in bed most of the day today. She is not attending groups Vitals remain stable. She is afebrile. She continues to complain of nausea, abdominal discomfort, headache, decreased appetite. Yesterday she reported bout of emesis which was unwitnessed. denies sore throat today or pain with swallowing. Continues to have loose stools. patient reports that she has had loose stools in past for up to 3 days at a time and believes she may have irritable bowel syndrome although this has never been diagnosed. Patient is napping most of the day. patient denies cough, chest pain, photophobia, rhinorrhea, SOB, dysuria, urinary frequency, back pain, neck stiffness Vitals: Vital Signs: Temp Pulse Resp BP Pulse Ox 97.3 F 77 18 129/78 100 10/20/17 08:32 10/20/17 08:32 10/20/17 12:43 10/20/17 08:32 10/20/17 08:32 PE: patient appears non toxic sweat observed on forehead Mental Status Examination: well related with good eye contact speech normal rate and volume not pressured normal psychomotor behavior mood: anxious, dysphroic affect: full range, congruent with mood TP: organized and goal directed Thought content: reports no suicidal ideation and no urges to self injure today. denies AH,VH, HI patient worries about being home alone when boyfriend is at work. She reports that she becomes anxious when alone as she worries about her future and that she will not be well enough to return to work. she also reports having great anxiety over her inability to initiate and and complete routine tasks. often becomes overwhelmed, distracted, and easiliy gets distracted Alert and fully oriented. insight and judgment intact Impression: 22 yo with history of PTSD, persistent depression, attentional deficits, self mutilation admitted for mood instability and suicidal ideation. patient requires continued hospitalization for stabalization of her mood, attentional deficits, and anxiety. patient is also experiencing diarrhea,nausea, abdomnial discomfort which may represent either gastroenteritis or may infact be a drug side effect. Plan: since naltrexone can commonly cause nausea, I will discontinue it for now Strattera can also cause nausea/emesis. Will Lower dose from 40 mg QAM to 25 mgQAM Continue Wellbutrin XL 150 mg QAM lithium er 1200 mg qhs Lower Prozac to 20 mg daily as patient has been on thismedication for quite some time and she reports limited benefit Increase klonopin from 0.25 mg BID to 0.5 mg BID Trazodone 50 mg qhs imodium 2 mg prn loose stool encourage fluids. lithium trough ordered for today at 5 pm. will check Plan - Plan Treatment Plan: Name: YANELY BLACKANGIEHAYES Birthdate: 1995 [id number]
[2017-10-20] MEDS: CMCS: Lithium Carbonate ER (NF) 300 MG TAB.ER PO SCH (20:32)
[2017-10-20] MEDS: traZODone TAB* 50 MG TAB PO SCH (20:32)
[2017-10-21] MEDS: Al Hydrox/Mg Hydrox/Simet LIQ* 30 ML UDC PO PRN (06:15)
[2017-10-21] MEDS ORDERED: ATOMOXETINE 25 MG PO SCH (09:00)
[2017-10-21] MEDS: BuPROPion XL* 150 MG TAB.XL PO SCH (10:09)
[2017-10-21] MEDS: Vitamin THERAPEUTIC TAB PO SCH (10:10)
[2017-10-21] MEDS: FLUoxetine CAP* 20 MG PO SCH (10:10)
[2017-10-21] MEDS: ATOMOXETINE 25 MG PO SCH (10:10)
[2017-10-21] MEDS: clonazePAM TAB(*) 0.5 MG PO SCH ×2 (10:13→17:08)
[2017-10-21] MEDS: traZODone TAB* 50 MG TAB PO SCH (20:41)
[2017-10-21] MEDS: CMCS: Lithium Carbonate ER (NF) 300 MG TAB.ER PO SCH (20:41)
[2017-10-21] MEDS: Acetaminophen TAB* 325 MG PO PRN (20:42)
[2017-10-22] MEDS: Vitamin THERAPEUTIC TAB PO SCH (09:04)
[2017-10-22] MEDS: ATOMOXETINE 25 MG PO SCH (09:04)
[2017-10-22] MEDS: FLUoxetine CAP* 20 MG PO SCH (09:04)
[2017-10-22] MEDS: BuPROPion XL* 150 MG TAB.XL PO SCH (09:05)
[2017-10-22] MEDS: clonazePAM TAB(*) 0.5 MG PO SCH ×2 (09:06→16:18)
--- NOTE | 2017-10-22 16:34 | PN ---
Subjective - Subjective Date of Service: 10/22/17 Service Type: 37811 Hosp care 15 min low complexity Subjective: Prudence reports she is doing much better today and in the milieu playing Bingo. Says self mutilating thoughts come and go, no plans to harm self. No physical complaints. Happy with current sex partner and thats what she needs and wants from him. Appears to be tolerating med changes well and actually doing better. Objective - Appearance Appearance: Obese Dysmorphic Features: No Hygiene: Normal Grooming: Fairly Well Kept - Behavior Psychomotor Activities: Normal Exhibits Abnormal Movement: No - Attitude and Relatedness Attitude and Relatedness: Appropriate Eye Contact: Fair - Speech Quality: Unpressured Latencies: Normal Quantity: Appropriate - Mood Patient's Decription of Mood: "Fine" - Affect Observed Affect: Non-labile - Thought Process Patient's Thought Process: Coherent, Goal Directed Thought Content: Yes Passive Wish, No Suicidal Planning, No Homicidal Ideation - Sensorium Experiencing Hallucinations: No, Sensorium is Clear Type of Hallucinations: Visual: No, Auditory: No, Command: No - Level of Consciousness Level of Consciousness: Alert Orientation: Yes Intact, Yes Orientated to Time, Yes Orientated to Place, Yes Orientated to Person - Impulse Control Impulse Control: Tenuous - Insight and Judgement Insight and Judgement: Poor - Group Participation Particating in Group Activities: Yes - Medication Management Medication Management Adherence: Yes Assessment - Assessment Merits Inpatient Hospitalization: For Immediate Safety, For Stabilization, For Discharge Planning Inpatient DSM-IV Dx: Unspecified depression Plan - Plan Treatment Plan: Name: PRUDENCE RASHID Birthdate: 1995 [id number] Continued Medication Management: Continue Outpt Medication Medications: Current Medications Acetaminophen (Tylenol Tab*) 650 mg PO Q4H PRN PRN Reason: PAIN or TEMP > 101 F Last Admin: 10/21/17 20:42 Dose: 650 mg Al Hydrox/Mg Hydrox/Simethicone (Maalox Plus*) 30 ml PO Q4H PRN PRN Reason: INDIGESTION Last Admin: 10/21/17 06:15 Dose: 30 ml Atomoxetine HCl (Strattera(Nf)) 25 mg PO 0900 [facility] PRN Reason: Protocol Last Admin: 10/22/17 09:04 Dose: 25 mg Bupropion HCl (Wellbutrin Xl *) 150 mg PO QAM [facility] PRN Reason: Protocol Last Admin: 10/22/17 09:05 Dose: 150 mg Clonazepam (Klonopin Tab(*)) 0.5 mg PO BID@0900,1700 [facility] Last Admin: 10/22/17 16:18 Dose: 0.5 mg Fluoxetine HCl (Prozac Cap*) 20 mg PO DAILY [facility] Last Admin: 10/22/17 09:04 Dose: 20 mg [place] Carbonate ([place] Carbonate Er (Nf)) 1,200 mg PO BEDTIME [facility] PRN Reason: Protocol Last Admin: 10/21/17 20:41 Dose: 1,200 mg Loperamide HCl (Imodium Cap*) 2 mg PO .SEE DIRECTIONS PRN PRN Reason: DIARRHEA Multivitamins (Theragran Tab*) 1 tab PO DAILY [facility] Last Admin: 10/22/17 09:04 Dose: 1 tab Trazodone HCl (Desyrel Tab*) 50 mg PO BEDTIME [facility] Last Admin: 10/21/17 20:41 Dose: 50 mg - Discharge Plan Discharge Plan: Outpatient Follow Up Outpatient Program: [facility]
[2017-10-22] MEDS: CMCS: Lithium Carbonate ER (NF) 300 MG TAB.ER PO SCH (20:49)
[2017-10-22] MEDS: traZODone TAB* 50 MG TAB PO SCH (20:50)
[2017-10-23] MEDS: BuPROPion XL* 150 MG TAB.XL PO SCH (09:14)
[2017-10-23] MEDS: ATOMOXETINE 25 MG PO SCH (09:15)
[2017-10-23] MEDS: Vitamin THERAPEUTIC TAB PO SCH (09:15)
[2017-10-23] MEDS: FLUoxetine CAP* 20 MG PO SCH (09:15)
[2017-10-23] MEDS: clonazePAM TAB(*) 0.5 MG PO SCH ×2 (09:16→17:23)
[2017-10-23] MEDS: Al Hydrox/Mg Hydrox/Simet LIQ* 30 ML UDC PO PRN (11:20)
--- NOTE | 2017-10-23 11:34 | PN ---
Subjective - Subjective Subjective: Psychiatric Attending Progress Note: Had visitation by mother and boyfriend over the weekend viral symtoms have remitted. bowel habits are no longer loose. nausea and headaches have resolved. Patient reports that she has noticed feeling much less agitated and anxious since starting Klonpin. Also sleeping better at night. feels racing thoughts and worries have diminished quite a bit. continues to feel depression, anhedonia, lack of interest to do the things she normally has interest in. no thoughts of suicide over the weekend. suicidal ideation has remitted completely but did have urge to cut self. "its a habit, i cant help it". patient found a plastic cap and did take off scab from self inflicted wound on her right wrist. [place], instead of secreting the cap and using it over the weekend, she turned it in to staff reporting to them that she didnt want to self injure over the weekend. Boyfriend coming in tomorrow for a family meeting. Requested short term medical leave from work of longer than 1 month. I felt that this was totally appropriate. I suggested 4 months and will right her a note which she can give to employer. Impression: 22 yo with history of PTSD, persistent depression, attentional deficits, self mutilation admitted for mood instability and suicidal ideation. patient had made gains with treatment here. noticeably less anxious overall and suicidal ideation has remitted. Viral illness getting better. Continues to have significant depressive symptoms which require further medication changes. Plan: Increase Strattera from 25 mg QAM to 50 mg QAM Increase Wellbutrin XL to 300 mg QAM lithium er 1200 mg qhs. level on 10/20/2017 was 0.66 Prozac 20 mg daily Klonopin from 0.5 mg BID Trazodone 50 mg qhs and may repeat X 1 after one hour imodium 2 mg prn loose stool Assessment - Assessment Inpatient DSM-IV Dx: Unspecified depression
--- NOTE | 2017-10-23 11:53 | PN ---
MHU: Group Therapy Note - Service Type Service Type: [id number] Group Psychotherapy - Cognitive Behavioral Group Therapy ( CBT):Patient was attentive and participatory in CBT programming this morning, and remained in good behavioral control. Patient expressed positive insights regarding relevant treatment interventions and goals.
[2017-10-23] MEDS: CMCS: Lithium Carbonate ER (NF) 300 MG TAB.ER PO SCH (20:10)
[2017-10-23] MEDS: traZODone TAB* 50 MG TAB PO SCH (20:10)
[2017-10-23] MEDS ORDERED: QUEtiapine TAB* 100 MG PO ONE (23:39)
[2017-10-23] MEDS ORDERED: QUEtiapine TAB* 100 MG ONE (23:40)
[2017-10-24] MEDS: Acetaminophen TAB* 325 MG PO PRN (10:37)
[2017-10-24] MEDS: CMCS:Atomoxetine(NF) 25 MG CAP PO SCH (10:37)
[2017-10-24] MEDS: BuPROPion XL* 300 MG TAB.XL PO SCH (10:38)
[2017-10-24] MEDS: Vitamin THERAPEUTIC TAB PO SCH (10:38)
[2017-10-24] MEDS: FLUoxetine CAP* 20 MG PO SCH (10:40)
[2017-10-24] MEDS: clonazePAM TAB(*) 0.5 MG PO SCH ×2 (10:40→17:24)
--- NOTE | 2017-10-24 13:49 | PN ---
Subjective - Subjective Subjective: Psychiatric Attending Progress Note; Events of last night reviewed. Patient went to AA meeting despite not having addiction issues. Patient wanted to share with group. Perceived (likely misperceived) that she was skipped over by the account group supervisor who are lay AA attendees running a group. Became angry that her needs were not met. felt betrayed and marginalized. became rageful. intensely rageful. Took pen went into bathroom and self injured on left arm superficially making numerous scratches across forearm which is currently bandaged with gauze and tape. Patient then went into long monologue, the gist of which had to do with not having her needs met for individuaol one to one time on the unit. proceeded to devalue the staff for not paying enough attention to her here. externalizing blame. patient then rationalizes her self injury as the only thing that she can do to "calm myself down" Choosing to harm self which makes her feel better rather than become physically aggressive and emotionally out of control which she reports she used to do in high school whern she felt betrayed or abandoned or slighted or ignored. MSE: patient is not acutely suicidal no psychotic symptoms she has very limited ego strenghts poor impulse control Impression: patient's difficulty with impulsivity, intentse rage, dramatic and superficial displays of emotion, inabililty to self sooth, low frustration tolerance and self injurious behaviors reveal severe borderline personality constellation. Patient is unlikely to further benefit from inpatient level of care. most appropriate treatment is outpatient psychotherapy with DBT. Plan: meeting with boyfriend and patient tomorrow followed by discharge in late afternoon will maintain currrent medication regimen unchanged. It will take time for new medications to begin improving target symptoms. f/u in [facility] will give patient 3 month leave from work
[2017-10-24] MEDS: CMCS: Lithium Carbonate ER (NF) 300 MG TAB.ER PO SCH (20:21)
[2017-10-24] MEDS: traZODone TAB* 50 MG TAB PO SCH (20:22)
[2017-10-25 07:57] VITALS: BP 116/68
[2017-10-25] MEDS: BuPROPion XL* 300 MG TAB.XL PO SCH (09:03)
[2017-10-25] MEDS: FLUoxetine CAP* 20 MG PO SCH (09:03)
[2017-10-25] MEDS: CMCS:Atomoxetine(NF) 25 MG CAP PO SCH (09:03)
[2017-10-25] MEDS: Vitamin THERAPEUTIC TAB PO SCH (09:03)
[2017-10-25] MEDS: clonazePAM TAB(*) 0.5 MG PO SCH (09:04)
--- NOTE | 2017-10-25 11:46 | DS ---
Treatment Course & Assessment Inpatient DSM-IV Dx: Unspecified depression Discharge Planning - Discharge Planning Medications: Current Medications Acetaminophen (Tylenol Tab*) 650 mg PO Q4H PRN PRN Reason: PAIN or TEMP > 101 F Last Admin: 10/24/17 10:37 Dose: 650 mg Al Hydrox/Mg Hydrox/Simethicone (Maalox Plus*) 30 ml PO Q4H PRN PRN Reason: INDIGESTION Last Admin: 10/23/17 11:20 Dose: 30 ml Atomoxetine HCl (Strattera(Nf)) 50 mg PO 0900 [facility] PRN Reason: Protocol Last Admin: 10/25/17 09:03 Dose: 50 mg Bupropion HCl (Bupropion Xl*) 300 mg PO QAM [facility] PRN Reason: Protocol Last Admin: 10/25/17 09:03 Dose: 300 mg Clonazepam (Klonopin Tab(*)) 0.5 mg PO BID@0900,1700 [facility] Last Admin: 10/25/17 09:04 Dose: 0.5 mg Fluoxetine HCl (Prozac Cap*) 20 mg PO DAILY [facility] Last Admin: 10/25/17 09:03 Dose: 20 mg [place] Carbonate ([place] Carbonate Er (Nf)) 1,200 mg PO BEDTIME [facility] PRN Reason: Protocol Last Admin: 10/24/17 20:21 Dose: 1,200 mg Loperamide HCl (Imodium Cap*) 2 mg PO .SEE DIRECTIONS PRN PRN Reason: DIARRHEA Multivitamins (Theragran Tab*) 1 tab PO DAILY [facility] Last Admin: 10/25/17 09:03 Dose: 1 tab Trazodone HCl (Desyrel Tab*) 50 mg PO BEDTIME [facility] Last Admin: 10/24/17 20:22 Dose: 50 mg Discharge Planning: Prescriptions provided for discharge [] Yes [] No Follow up care details as per social work arrangements. Patient response to discharge plan: [] eager for discharge [] agreeable with discharge plan [] ambivalent about discharge [] disagrees with discharge today
--- NOTE | 2017-10-25 11:54 | PN ---
MHU: Group Therapy Note - Service Type Service Type: [id number] Group Psychotherapy - Cognitive Behavioral Group Therapy ( CBT):Patient was attentive and participatory in CBT programming this morning, and remained in good behavioral control. Patient expressed positive insights regarding relevant treatment interventions and goals.
== END 2017-10-25 15:30 | disposition home or self-care (01) | DRG 751 ==
LOC: ED 15:00 → BSU 21:48
PROVIDERS: ADMIT Psychiatry & Neurology Psychiatry; ATTEND Psychiatry & Neurology Psychiatry
DX: F33.2 Major depressive disorder, recurrent severe without psychotic features (principal); R45.851 Suicidal ideations; E66.01 Morbid (severe) obesity due to excess calories; F50.81 Binge eating disorder; F43.12 Post-traumatic stress disorder, chronic; F90.2 Attention-deficit hyperactivity disorder, combined type; Z79.899 Other long term (current) drug therapy; Z88.0 Allergy status to penicillin; Z68.39 Body mass index [BMI] 39.0-39.9, adult; Z81.8 Family history of other mental and behavioral disorders
CPT/HCPCS: 36415; 80053; 80178; 80320; 80329; 84436; 84439; 84443; 84702; 85025; 90686; 90853; 99222; 99231; 99238; A9270-GY; G0480

== ENCOUNTER 2017-12-09 13:10 | Emergency (ER) | payer BC, MEDICAID ==
[2017-12-09 15:02] LABS: Urine Appearance Clear; Urine Blood Negative (Negative); Urine Color Straw; Urine Ketones Negative (Negative); Urine Protein Negative (Negative); Urine Specific Gravity 1.005 (1.010-1.030); Urine Urobilinogen Negative (Negative)
[2017-12-09 15:09] LABS: ABS Basophils 0.1 10^3/ul (0-0.2); ABS Eosinophils 0.4 10^3/ul (0-0.6); ABS Lymphocytes 2.4 10^3/ul (1.0-4.8); ABS Monocytes 0.8 10^3/ul (0-0.8); ABS Neutrophils 8.3 10^3/ul (1.5-7.7); ABS Nucleated RBC 0 10^3/ul; Eosinophil % 3.3 % (0-6); Hematocrit 40 % (35-47); Hemoglobin 13.7 g/dl (12.0-16.0); Lymphocyte % 20.1 % (25-47); Mean Corpuscular HGB Conc 35 g/dl (31-36); Mean Corpuscular Hemoglobin 31 pg (27-31); Mean Corpuscular Volume 90 fL (80-97); Mean Platelet Volume 7 um3 (7.4-10.4); Nucleated Red Blood Cells % 0.1; Platelet Count 297 10^3/ul (150-450); Red Blood Count 4.44 10^6/ul (4.0-5.4); Red Cell Distribution Width 12 % (10.5-15)
[2017-12-09 15:26] LABS: EGFR Non-African American 84.8 (>60)
--- NOTE | 2017-12-09 17:01 | RAD ---
INDICATION: Left adnexal pain COMPARISON: None. TECHNIQUE: Real-time transabdominal and transvaginal ultrasound examination of the female pelvis including grayscale and Doppler color flow imaging. FINDINGS: Uterus: The uterus is normal in size and echogenicity measuring 6.9 x 3.2 x 4.1 cm. The endometrial stripe is smooth and uniform measuring 1 cm in thickness. Ovaries: The right and left ovary measure 2.9 x 3.3 x 2.0 cm and 3.2 x 1.7 x 3.2 cm, respectively. Normal arterial and venous waveforms are identified. In each ovary there are anechoic and avascular structures measuring up to 1.8 cm in the right and 1.8 cm and the left. Also in the left ovary is a more regular avascular partially echogenic structure, likely a involuting/hemorrhagic follicle. There is small amount of free fluid in the cul-de-sac. IMPRESSION: Sonographic findings are compatible with ovarian follicles, possibly with an involuting follicle in the left ovary in the presence of a small amount of free fluid in the cul-de-sac. Please correlate to stage of menstruation.
[2017-12-09] MEDS ORDERED: Acetaminophen TAB* 325 MG PO ONE (17:20)
--- NOTE | 2017-12-09 20:28 | RAD ---
CLINICAL HISTORY: Left flank pain with complaints of constipation followed by diarrhea. COMPARISON: None TECHNIQUE: Noncontrast CT examination of the abdomen and pelvis from the lung bases through the initial tuberosities. FINDINGS: VISUALIZED LUNG BASES: The visualized lung bases are grossly clear. There is no pleural effusion. ABDOMEN AND PELVIS: Evaluation of the solid organs and vasculature is limited without intravenous contrast. There is homogenous hypoattenuation of the liver parenchyma relative to the spleen. The liver is enlarged measuring up to 21.9 cm in greatest cephalocaudal dimension. The spleen, pancreas and adrenal glands are grossly normal in appearance. The gallbladder is normal. The kidneys are normal in appearance without focal mass, calcification or signs of hydronephrosis. Evaluation of the gastrointestinal tract is limited without oral contrast. The small and large bowel are not distended.The patient's normal appendix is identified in the right lower quadrant with gas in the lumen (axial image 124). There is no gross retroperitoneal adenopathy. Scattered mesenteric lymph nodes are seen measuring up to 9 mm in short axis diameter (coronal image 51). As was seen on the same day pelvic ultrasound, there is free fluid in the cul-de-sac. Fluid attenuation structures in the adnexa most likely correspond to the follicle seen on the pelvic ultrasound. The abdominal aorta and iliac arteries are normal in course and diameter. There are no sinister bone lesions. IMPRESSION: 1. There are scattered top normal mesenteric lymph nodes but no definite CT evidence of acute bowel pathology within the limitations of a noncontrast CT of the abdomen and pelvis. The gas-filled appendix appears normal. 2. There are no renal calculi or signs of obstructive uropathy. 3. As was better characterized on the pelvic ultrasound there are low attenuation structures at the ovaries and a small amount of free fluid in the cul-de-sac likely related to lobulation and/or menstruation in a woman of this age. Please correlate to menstrual cycle and/or any gynecologic symptoms. 4. Mild hepatic megaly and hepatic steatosis. Please correlate to LFTs.
[2017-12-09] MEDS ORDERED: HYDROcodone/ACETAMIN 5-325 MG* 1 TAB PO ONE (20:50)
[2017-12-09 21:41] VITALS: BP 132/76
--- NOTE | 2017-12-10 17:10 | ED ---
Chikis Burgess Thomas, scribed for Peterson Mace MD on 12/09/17 at 1449 . Abdominal Pain/Female - HPI Summary HPI Summary: The patient is a 22 year old female complaining of left-sided abdominal pain for the last two days. The pain is greatest in her LLQ. Her last BM was two days ago and she has been constipated since then. The patient additionally complains of mild nausea and mild urinary urgency. LMP is forever ago. Probably July/August. Martha never had normal periods. - History of Current Complaint Chief Complaint: EDAbdPain Stated Complaint: ABD PAIN Time Seen by Provider: 12/09/17 14:23 Hx Obtained From: Patient Hx Last Menstrual Period: 02/06/17 Onset/Duration: Lasting Days - 2, Still Present Timing: Constant Severity Currently: Moderate Pain Intensity: 4 Pain Scale Used: 0-10 Numeric Location: Discrete At: LUQ, Discrete At: LLQ Aggravating Factor(s): Nothing Alleviating Factor(s): Position Associated Signs and Symptoms: Positive: Constipation, Nausea, Other: - urinary urgency. Negative: Fever Allergies/Adverse Reactions: Allergies Allergy/AdvReac Type Severity Reaction Status Date / Time Penicillins Allergy Rash Verified 12/09/17 13:12 venlafaxine Allergy Anxiety Verified 12/09/17 13:12 PMH/Surg Hx/FS Hx/Imm Hx Endocrine/Hematology History: Denies: Hx Diabetes, Hx Thyroid Disease, Hx Unexplained Bleeding Cardiovascular History: Denies: Hx Hypertension, Hx Pacemaker/ICD, Hx Peripheral Vascular Disease, Hx Rheumatic Fever, Hx Syncope, Hx Valvular Heart Disease, Other Cardiovascular Problems/Disorders Respiratory History: Denies: Hx Asthma, Hx Chronic Obstructive Pulmonary Disease (COPD) GI History: Denies: Hx Ulcer Musculoskeletal History: Reports: Other Musculoskeletal History - swimmer, sprain or fx couple yrs ago,[facility] imaging blurry Sensory History: Denies: Hx Cataracts, Hx Contacts or Glasses, Hx Eye Injury, Hx Eye Prosthesis, Hx Glaucoma, Hx Legally Blind, Hx Macular Degeneration, Hx Vision Problem, Hx Deafness, Hx Hearing Aid, Hx Hearing Problem, Other Sensory Impairments Opthamlomology History: Denies: Hx Cataracts, Hx Contacts or Glasses, Hx Eye Injury, Hx Eye Prosthesis, Hx Glaucoma, Hx Legally Blind, Hx Macular Degeneration, Hx Vision Problem, Other Sensory Impairments Psychiatric History: Reports: Hx Anxiety, Hx Eating Disorder - Dx about 1 year ago, Hx Inpatient Treatment, Other Psychiatric Issues/Disorders - Hx of self- injuring since age 12 years -old Denies: Hx Panic Disorder, Hx of Violent Episodes Against Others Infectious Disease History: No Infectious Disease History: Reports: Hx Shingles Denies: Hx Clostridium Difficile, Hx Hepatitis, Hx Human Immunodeficiency Virus (HIV), Hx of Known/Suspected MRSA, Hx Tuberculosis, Hx Known/Suspected VRE , Hx Known/Suspected VRSA, History Other Infectious Disease - mono, Traveled Outside the [place] in Last 30 Days - Family History Known Family History: Positive: Hypertension Negative: Other - Bipolar disorder - Social History Alcohol Use: None Alcohol Amount: socially Hx Substance Use: No Substance Use Type: Reports: None Smoking Status (MU): Never Smoked Tobacco Have You Smoked in the Last Year: No Review of Systems Negative: Fever Positive: Abdominal Pain, Nausea, Other - Constipation Positive: urgency - mild All Other Systems Reviewed And Are Negative: Yes Physical Exam - Summary Physical Exam Summary: Appearance: The patient is well-nourished in no acute distress and in no acute pain. Skin: The skin is warm and dry and skin color reflects adequate perfusion. HEENT: ~The head is normocephalic and atraumatic. The pupils are equal and reactive. The conjunctivae are clear and without drainage. ~Nares are patent and without drainage. Mouth reveals moist mucous membranes and the throat is without erythema and exudate. The external ears are intact. The ear canals are patent and without drainage. The tympanic membranes are intact. Neck: the neck is supple with full range of motion and non-tender. There are no carotid bruits. ~There is no neck vein distension. Respiratory: Chest is non-tender. ~Lungs are clear to auscultation and breath sounds are symmetrical and equal. Cardiovascular: Heart is regular rate and rhythm. ~There is no murmur or rub auscultated. ~~There is no peripheral edema and pulses are symmetrical and equal. Abdomen: The abdomen is soft. She is tender to her LLQ. There are normal bowel sounds heard in all four quadrants and there is no organomegaly palpated. Musculoskeletal: There is no back tenderness noted. ~Extremities are non-tender with full range of motion. ~There is good capillary refill. There is no peripheral edema or calf tenderness elicited. Neurological: Patient is alert and oriented to person, place and time. ~The patient has symmetrical motor strength in all four extremities. ~Cranial nerves are grossly intact. Deep tendon reflexes are symmetrical and equal in all four extremities. Psychiatric: The patient has an appropriate affect and does not exhibit any anxiety or depression. Triage Information Reviewed: Yes Vital Signs On Initial Exam: Initial Vitals Temp Pulse Resp BP Pulse Ox 98.1 F 116 16 141/90 98 12/09/17 13:12 12/09/17 13:12 12/09/17 13:12 12/09/17 13:12 12/09/17 13:12 Vital Signs Reviewed: Yes Diagnostics - Vital Signs Vital Signs Temp Pulse Resp BP Pulse Ox 12/09/17 13:12 98.1 F 116 16 141/90 98 - Laboratory Lab Results: Lab Results 12/09/17 12/09/17 12/09/17 Range/Units 14:42 15:00 15:00 WBC 12.0 H (3.5-10.8) 10^3/ul RBC 4.44 (4.0-5.4) 10^6/ul Hgb 13.7 (12.0-16.0) g/dl Hct 40 (35-47) % MCV 90 (80-97) fL MCH 31 (27-31) pg MCHC 35 (31-36) g/dl RDW 12 (10.5-15) % Plt Count 297 (150-450) 10^3/ul MPV 7 L (7.4-10.4) um3 Neut % (Auto) 69.3 (38-83) % Lymph % (Auto) 20.1 L (25-47) % [place] % (Auto) 6.6 (0-7) % Eos % (Auto) 3.3 (0-6) % Baso % (Auto) 0.7 (0-2) % Absolute Neuts (auto) 8.3 H (1.5-7.7) 10^3/ul Absolute Lymphs (auto) 2.4 (1.0-4.8) 10^3/ul Absolute Monos (auto) 0.8 (0-0.8) 10^3/ul Absolute Eos (auto) 0.4 (0-0.6) 10^3/ul Absolute Basos (auto) 0.1 (0-0.2) 10^3/ul Absolute Nucleated RBC 0 10^3/ul Nucleated RBC % 0.1 Sodium 135 (133-145) mmol/L Potassium 3.7 (3.5-5.0) mmol/L Chloride 104 (101-111) mmol/L Carbon Dioxide 26 (22-32) mmol/L Anion Gap 5 (2-11) mmol/L BUN 10 (6-24) mg/dL Creatinine 0.84 (0.51-0.95) mg/dL Est GFR ( Amer) 109.0 (>60) Est GFR (Non-Af Amer) 84.8 (>60) BUN/Creatinine Ratio 11.9 (8-20) Glucose 86 (70-100) mg/dL Lactic Acid (0.5-2.0) mmol/L Calcium 9.9 (8.6-10.3) mg/dL Total Bilirubin 0.40 (0.2-1.0) mg/dL AST 21 (13-39) U/L ALT 32 (7-52) U/L Alkaline Phosphatase 62 (34-104) U/L C-Reactive Protein 5.16 H (< 5.00) mg/L Total Protein 7.2 (6.4-8.9) g/dL Albumin 4.3 (3.2-5.2) g/dL Globulin 2.9 (2-4) g/dL Albumin/Globulin Ratio 1.5 (1-3) Lipase 16 (11.0-82.0) U/L Beta HCG, Quant < 0.60 mIU/mL Urine Color Straw Urine Appearance Clear Urine pH 8.0 (5-9) Ur Specific [place] 1.005 L (1.010-1.030) Urine Protein Negative (Negative) Urine Ketones Negative (Negative) Urine Blood Negative (Negative) Urine Nitrate Negative (Negative) Urine Bilirubin Negative (Negative) Urine Urobilinogen Negative (Negative) Ur Leukocyte Esterase Negative (Negative) Urine Glucose Negative (Negative) 12/09/17 Range/Units 15:00 WBC (3.5-10.8) 10^3/ul RBC (4.0-5.4) 10^6/ul Hgb (12.0-16.0) g/dl Hct (35-47) % MCV (80-97) fL MCH (27-31) pg MCHC (31-36) g/dl RDW (10.5-15) % Plt Count (150-450) 10^3/ul MPV (7.4-10.4) um3 Neut % (Auto) (38-83) % Lymph % (Auto) (25-47) % [place] % (Auto) (0-7) % Eos % (Auto) (0-6) % Baso % (Auto) (0-2) % Absolute Neuts (auto) (1.5-7.7) 10^3/ul Absolute Lymphs (auto) (1.0-4.8) 10^3/ul Absolute Monos (auto) (0-0.8) 10^3/ul Absolute Eos (auto) (0-0.6) 10^3/ul Absolute Basos (auto) (0-0.2) 10^3/ul Absolute Nucleated RBC 10^3/ul Nucleated RBC % Sodium (133-145) mmol/L Potassium (3.5-5.0) mmol/L Chloride (101-111) mmol/L Carbon Dioxide (22-32) mmol/L Anion Gap (2-11) mmol/L BUN (6-24) mg/dL Creatinine (0.51-0.95) mg/dL Est GFR ( Amer) (>60) Est GFR (Non-Af Amer) (>60) BUN/Creatinine Ratio (8-20) Glucose (70-100) mg/dL Lactic Acid 0.9 (0.5-2.0) mmol/L Calcium (8.6-10.3) mg/dL Total Bilirubin (0.2-1.0) mg/dL AST (13-39) U/L ALT (7-52) U/L Alkaline Phosphatase (34-104) U/L C-Reactive Protein (< 5.00) mg/L Total Protein (6.4-8.9) g/dL Albumin (3.2-5.2) g/dL Globulin (2-4) g/dL Albumin/Globulin Ratio (1-3) Lipase (11.0-82.0) U/L Beta HCG, Quant mIU/mL Urine Color Urine Appearance Urine pH (5-9) Ur Specific [place] (1.010-1.030) Urine Protein (Negative) Urine Ketones (Negative) Urine Blood (Negative) Urine Nitrate (Negative) Urine Bilirubin (Negative) Urine Urobilinogen (Negative) Ur Leukocyte Esterase (Negative) Urine Glucose (Negative) Result Diagrams: 12/09/17 15:00 12/09/17 15:00 Lab Statement: Any lab studies that have been ordered have been reviewed, and results considered in the medical decision making process. - CT CT Abd/Pel CT Interpretation: Positive (See Comments) - 1. There are scattered top normal mesenteric lymph nodes but no definite CT evidence of acute bowel pathology within the limitations of a noncontrast CT of the abdomen and pelvis. The gas-filled appendix appears normal. 2. There are no renal calculi or signs of obstructive uropathy. 3. As was better characterized on the pelvic ultrasound there are low attenuation structures at the ovaries and a small amount of free fluid in the cul-de-sac likely related to lobulation and/or menstruation in a woman of this age. Please correlate to menstrual cycle and/or any gynecologic symptoms. 4. Mild hepatic megaly and hepatic steatosis. Please correlate to LFTs. Dr. Mace has reviewed this report. CT Interpretation Completed By: Radiologist - Additional Comments Diagnostic Additional Comments: Transvaginal ultrasound. Interpreted by radiologist. IMPRESSION: Sonographic findings are compatible with ovarian follicles, possibly with an involuting follicle in the left ovary in the presence of a small amount of free fluid in the cul-de-sac. Please correlate to stage of menstruation. Dr. Mace has reviewed this report. Abdominal Pain Fem Course/Dx - Course Course Of Treatment: Ms. Madison presented with a C/O LLQ pain. She also had one episode of diarrhea and now thinks she's constipated because she hasn't had a BM in one day. She was tender in the LLQ and an U/S showed a hemorrhagic follicular cyst. She had a nonspecific slight leukocytosis. After the U/S, she amended her story to include a small bloody BM today. A CT was obtaine and showed some lymphadenopathy. I don't think antibiotics are indicated here although she will have to be followed closely to see if anything develops. I will treat her symptomatically. - Diagnoses Provider Diagnoses: Mesenteric adenitis Discharge - Discharge Plan Condition: Stable Disposition: HOME Prescriptions: HYDROcodone/ACETAMIN 5-325 MG* [[place] 5-325 TAB*] 1 tab PO Q6H PRN #20 tab MDD 4 PRN Reason: Pain Patient Education Materials: Mesenteric Adenitis (ED) Referrals: April Hart MD [Primary Care Provider] - 3 Days Additional Instructions: Follow up with your primary care physician in three days. Return to the emergency department for any new or worsening symptoms. The documentation as recorded by the Chikis frank Thomas accurately reflects the service I personally performed and the decisions made by me, Peterson Mace MD.
== END 2017-12-09 21:39 | disposition home or self-care (01) ==
LOC: ED 13:10
DX: I88.0 Nonspecific mesenteric lymphadenitis (principal); K59.00 Constipation, unspecified; R11.0 Nausea; R10.32 Left lower quadrant pain; Z32.02 Encounter for pregnancy test, result negative; Z88.0 Allergy status to penicillin; Z88.8 Allergy status to other drugs, medicaments and biological substances
CPT/HCPCS: 36415; 74176; 76830; 80053; 81003; 83605; 83690; 84702; 85025; 86140; 99285; A9270-GY